=== PATIENT | female | born 1985 | race Caucasian/White ===

== ENCOUNTER 2021-11-10 10:58 | Outpatient (CLI) | payer OTHER | END 2021-11-10 11:07 | disposition home or self-care (01) | LOC: RAD 10:58 | DX: M99.01 Segmental and somatic dysfunction of cervical region (principal); M99.02 Segmental and somatic dysfunction of thoracic region ==

== ENCOUNTER 2022-11-16 08:14 | Outpatient (CLI) | payer OTHER | END 2022-11-16 08:21 | disposition home or self-care (01) | LOC: SONOGRAMA 08:14 | DX: N63.11 Unspecified lump in the right breast, upper outer quadrant (principal); N63.21 Unspecified lump in the left breast, upper outer quadrant; Z12.31 Encounter for screening mammogram for malignant neoplasm of breast ==

== ENCOUNTER 2024-06-04 10:24 | Outpatient (CLI) | payer OTHER | END 2024-06-04 10:31 | disposition home or self-care (01) | LOC: SONOGRAMA 10:24 | PROVIDERS: ATTEND Obstetrics & Gynecology | DX: N64.59 Other signs and symptoms in breast (principal) ==